=== PATIENT | female | born 1950 | race Caucasian/White ===

== ENCOUNTER → 2019-08-23 11:12 | Outpatient (CLI) | payer MEDICARE, OTHER, SELFPAY ==
--- NOTE | 2019-08-23 | DI.CT.S_ITS ---
PROCEDURE: CT ABDOMEN PELVIS WO/W CON INDICATIONS: Other microscopic hematuria TECHNIQUE: Optional 5 mm thick noncontrast images acquired from the diaphragm to the symphysis pubis. After the administration of intravenous contrast, 5 mm thick images acquired from the diaphragm to the symphysis pubis after a 10-minute delay. 2 mm thick coronal and sagittal reformats were then performed of the kidneys and ureters. For radiation dose reduction, the following was used: automated exposure control, adjustment of mA and/or kV according to patient size. COMPARISON: None. FINDINGS: Image quality: Excellent. Lung bases: Lung bases are clear. Heart size is normal. Urinary system: Both kidneys are normal in size, without hydronephrosis or nephrolithiasis on pre-contrast images. The a few small cortical cysts are present in the right kidney, and a miniscule cyst in the lateral left kidney cortex. No perinephric fat stranding. There is normal bilateral renal enhancement. Renal calyces appear normal in morphology when filled with contrast. Opacified portions of both ureters demonstrate normal caliber. Tortuous course of the proximal right ureter. A mild stricture at the left ureteropelvic junction without significant renal pelvic dilatation. The left mid to distal ureter is not opacified. No visible obstruction or calcification. Bladder wall thickness is normal. No calcified bladder stones. Other solid organs: Liver demonstrates numerous hepatic cysts in both lobes of varying sizes ranging from a few millimeters to 5.2 cm. No suspicious solid liver masses. Gallbladder appears normal. Biliary system is non dilated. Pancreas enhances normally. Spleen is normal in size and enhancement. No adrenal nodules. Peritoneum and bowel: Bowel loops demonstrate normal wall thickness and caliber. Numerous diverticula are present in the sigmoid colon and throughout the descending colon. Occasional diverticula are seen elsewhere. Normal appendix is seen. No free fluid or air. Nodes and vessels: No retroperitoneal or mesenteric adenopathy by size criteria. Aorta and inferior vena cava are normal in size. Abdominal wall: No ventral hernias. Pelvis: No pathologic free pelvic fluid. No inguinal hernias or adenopathy. The uterus is present. There are 2 dominant cysts associated with the right ovary, one with punctate wall calcification. These measure 1.2 and 1.5 cm. Left ovarian tissue is normal. Bones: No suspicious bony lesions. No vertebral body compression fractures. IMPRESSION: 1. No evidence of urinary calcification, obstruction, or suspicious soft tissue lesion. 2. There is incomplete evaluation of the mid to distal left ureter secondary to suboptimal opacification. 3. Small bilateral cortical renal cysts. 4. Numerous simple hepatic cysts. 5. Diverticulosis. 6. 2 right ovarian cysts. Pelvic ultrasound is recommended for further characterization and followup. Dictated by: Luz Elena Arroyo M.D. on 08/23/2019 at 19:01 Approved by: Luz Elena Arroyo M.D. on 08/23/2019 at 19:10
[2019-08-23 11:54] LABS: BUN Creatinine Ratio 31.7 (6-22); Blood Urea Nitrogen 19 mg/dL (7-17); Estimated Glomerular Filt Rate > 60.0 mL/min (>60)
== END ==
PROVIDERS: Visit Provider Urology
DX: R31.29 Other microscopic hematuria (principal); N28.1 Cyst of kidney, acquired; K76.89 Other specified diseases of liver; K57.30 Diverticulosis of large intestine without perforation or abscess without bleeding; N83.201 Unspecified ovarian cyst, right side
CPT/HCPCS: 36415; 74178; 82565; 84520; Q9967